=== PATIENT | female | born 1955 | race Caucasian/White ===

== ENCOUNTER 2017-10-04 05:45 | Day surgery (SDC) | payer OTHER ==
[2017-10-04] MEDS ORDERED: FENTAnyl 50 MCG/ML VIAL (07:59)
[2017-10-04] MEDS ORDERED: MIDAZOLAM 1 MG/ML 2 ML INJ ×2 (07:59)
== END 2017-10-04 10:06 | disposition home or self-care (01) ==
LOC: GIL 05:45
DX: R13.10 Dysphagia, unspecified (principal); K21.9 Gastro-esophageal reflux disease without esophagitis; K29.60 Other gastritis without bleeding
CPT/HCPCS: 43239; 88305; 88312

== ENCOUNTER 2018-12-13 06:50 | Day surgery (SDC) | payer OTHER ==
[2018-12-13] MEDS ORDERED: MIDAZOLAM 1 MG/ML 2 ML INJ ×4 (08:42)
[2018-12-13] MEDS ORDERED: FENTAnyl 50 MCG/ML VIAL (08:42)
== END 2018-12-13 11:37 | disposition home or self-care (01) ==
LOC: GIL 06:50
DX: R19.4 Change in bowel habit (principal); K64.8 Other hemorrhoids; K21.9 Gastro-esophageal reflux disease without esophagitis; K29.60 Other gastritis without bleeding
CPT/HCPCS: 43239; 88305; 88312